=== PATIENT | female | born 1960 ===

== ENCOUNTER 2017-12-01 08:42 | Outpatient (CLI) | payer OTHER ==
[~2017-12-01 08:42] MED LIST: ANTIHISTAMINE EY5 ML OP; CIPRO HC OTIC S10 ML OT; ZYRTEC10 MG PO
== END 2017-12-01 08:53 | disposition home or self-care (01) ==
LOC: MAMO-SONO 08:42
DX: Z12.31 Encounter for screening mammogram for malignant neoplasm of breast (principal); N64.4 Mastodynia

== ENCOUNTER 2018-11-12 10:50 | Outpatient (CLI) | payer OTHER | END 2018-11-12 10:53 | disposition home or self-care (01) | LOC: RAD 10:50 | DX: R05 Cough (principal); J06.9 Acute upper respiratory infection, unspecified ==

== ENCOUNTER 2019-02-27 10:02 | Outpatient (CLI) | payer OTHER | END 2019-02-27 10:17 | disposition home or self-care (01) | LOC: MAMO-SONO 10:02 | DX: Z12.31 Encounter for screening mammogram for malignant neoplasm of breast (principal); N64.4 Mastodynia ==

== ENCOUNTER 2020-03-05 09:30 | Outpatient (CLI) | payer OTHER | END 2020-03-05 09:40 | disposition home or self-care (01) | LOC: MAMO-SONO 09:30 | PROVIDERS: ATTEND Obstetrics & Gynecology Gynecology | DX: Z12.31 Encounter for screening mammogram for malignant neoplasm of breast (principal); L04.2 Acute lymphadenitis of upper limb; N64.59 Other signs and symptoms in breast ==

== ENCOUNTER 2021-04-02 12:58 | Outpatient (CLI) | payer OTHER | END 2021-04-02 13:42 | disposition home or self-care (01) | LOC: MAMO-SONO 12:58 | PROVIDERS: ATTEND General Practice | DX: Z12.11 Encounter for screening for malignant neoplasm of colon (principal); Z00.8 Encounter for other general examination; Z12.39 Encounter for other screening for malignant neoplasm of breast; Z12.4 Encounter for screening for malignant neoplasm of cervix; Z11.3 Encounter for screening for infections with a predominantly sexual mode of transmission ==

== ENCOUNTER 2022-04-09 14:33 | Outpatient (CLI) | payer OTHER | END 2022-04-09 15:03 | disposition home or self-care (01) | LOC: MAMO-SONO 14:33 | PROVIDERS: ATTEND General Practice | DX: Z12.31 Encounter for screening mammogram for malignant neoplasm of breast (principal); Z00.8 Encounter for other general examination; Z12.11 Encounter for screening for malignant neoplasm of colon; Z12.4 Encounter for screening for malignant neoplasm of cervix; Z12.39 Encounter for other screening for malignant neoplasm of breast; E78.2 Mixed hyperlipidemia; R05.3 Chronic cough; Z11.59 Encounter for screening for other viral diseases; Z20.828 Contact with and (suspected) exposure to other viral communicable diseases; J11.1 Influenza due to unidentified influenza virus with other respiratory manifestations; M79.644 Pain in right finger(s) ==

== ENCOUNTER 2024-05-29 11:42 | Outpatient (CLI) | payer OTHER | END 2024-05-29 12:07 | disposition home or self-care (01) | LOC: MAMO-SONO 11:42 | DX: N64.4 Mastodynia (principal); Z12.31 Encounter for screening mammogram for malignant neoplasm of breast ==